=== PATIENT | male | born 1940 | race Caucasian/White ===

== ENCOUNTER → 2016-02-22 | Outpatient (CLI) | payer MEDICARE ==
[~2016-02-22] MED LIST: AMLO10TA PO; ASCO100083 PO; ASP81TEC PO; ATEN100T88 PO; BISO10TA PO; CHOL10003 PO; HYDR-3730 PO; MULT-974 PO; OMEG-12 PO; POTA99TA18 PO; VITA-198 PO
--- NOTE | 2016-02-22 14:33 | Diagnostic Imaging Report ---
PROCEDURE: CT abdomen without contrast. TECHNIQUE: Multiple contiguous axial images were obtained through the abdomen without the use of intravenous contrast. INDICATION: Abdominal pain to the left of the umbilicus for approximately two months. CORRELATION STUDY: None. FINDINGS: Visualized lung bases are clear. Small hiatal hernia with minimal wall thickening of the low esophagus. The unenhanced liver, spleen, and adrenal glands are unremarkable. There are rather prominent fatty atrophic changes about the pancreas. Gallbladder is absent with clips in the fossa. No bile duct dilatation. Right kidney and collecting system are unremarkable. There is rounded low-density mass anteriorly of the left kidney measuring approximately 5 x 3.5 cm, most compatible with a cyst with Hounsfield unit of around 3. Left kidney and collecting system are otherwise unremarkable. Partially visualized gastrointestinal tract is unremarkable apart from a few colonic diverticula. Minimal wall calcification of the abdominal aorta, nonaneurysmal. A few mildly prominent non pathologically enlarged mesenteric lymph nodes. There is very small fat-containing retro-umbilical hernia. No bowel involvement. The remainder of the abdominal wall is unremarkable. In particular, the left periumbilical region is unremarkable. Osseous structures demonstrate no acute abnormality. There is somewhat bulky irregularity about the left costovertebral margins which are fused. IMPRESSION: 1. Small fat-containing retro-umbilical hernia. Abdominal wall is otherwise unremarkable. No etiology for the patient's symptoms. Dictated by: Dictated on workstation # [id number]
== END ==
LOC: RAD 13:25
PROVIDERS: ATTEND Internal Medicine
DX: R10.33 Periumbilical pain (principal); K42.9 Umbilical hernia without obstruction or gangrene
CPT/HCPCS: 74150

== ENCOUNTER 2016-05-28 14:15 | Outpatient (CLI) | payer MEDICARE ==
[~2016-05-28] VITALS: Ht 172.7 cm; Wt 96.3 kg
[~2016-05-28 14:15] MED LIST changes: -BISO10TA PO; -HYDR-3730 PO
[2016-05-28] MEDS ORDERED: BISO10TA PO (14:27)
[2016-05-28 14:29] VITALS: BP 159/96
[2016-05-28 14:51] LABS: BASOPHILS % (AUTO) 0 % (0-10); EOSINOPHILS # (AUTO) 0.2 10^3/uL (0.0-0.3); EOSINOPHILS % (AUTO) 2 % (0-10); LYMPHOCYTES # (AUTO) 2.7 X 10^3 (1.0-4.0); LYMPHOCYTES % (AUTO) 37 % (12-44); MEAN CORPUSCULAR HEMOGLOBIN 31 PG (25-34); MEAN CORPUSCULAR HGB CONC 35 G/DL (32-36); MEAN CORPUSCULAR VOLUME 91 FL (80-99); MONOCYTES # (AUTO) 0.8 X 10^3 (0.0-1.0); MONOCYTES % (AUTO) 11 % (0-12); NEUTROPHILS # (AUTO) 3.5 X 10^3 (1.8-7.8); NEUTROPHILS % (AUTO) 49 % (42-75); PLATELET COUNT 207 10^3/uL (130-400); RED BLOOD COUNT 4.58 10^6/uL (4.35-5.85); RED CELL DISTRIBUTION WIDTH 13.5 % (10.0-14.5); WHITE BLOOD COUNT 7.1 10^3/uL (4.3-11.0)
== END 2016-05-28 16:00 | disposition home or self-care (01) ==
LOC: PREOP 14:15
PROVIDERS: ATTEND Surgery Pediatric Surgery
DX: Z01.812 Encounter for preprocedural laboratory examination (principal); Z11.2 Encounter for screening for other bacterial diseases; K43.2 Incisional hernia without obstruction or gangrene
CPT/HCPCS: 36415; 85025; 87081

== ENCOUNTER 2016-05-31 07:30 | Day surgery (SDC) | payer MEDICARE ==
[~2016-05-31] VITALS: Ht 172.7 cm; Wt 96.3 kg
[~2016-05-31 07:30] MED LIST changes: +BISO10TA PO
[2016-05-31] MEDS ORDERED: NS (IVPB) 50 ML ONE (07:38)
[2016-05-31] MEDS ORDERED: ceFAZolin 1,000 MG (ANCEF) VIAL ONE (07:38)
[2016-05-31] MEDS ORDERED: CATHETER FLUSH 10 ML SYR IV PRN (07:45)
[2016-05-31] MEDS ORDERED: ceFAZolin 1 GM/NS 50 ML IVPB IV ONE ×2 (07:45)
[2016-05-31 07:47] VITALS: BP 181/98
[2016-05-31] MEDS ORDERED: LACTATED RINGERS 1,000 ML IV PRN (08:00)
[2016-05-31] MEDS ORDERED: FAMOTIDINE 20MG/2ML IV (PEPCID) IV ONE (08:00)
--- NOTE | 2016-05-31 08:02 | Progress Note-Pre Operative ---
Pre-Operative Progress Note H&P Reviewed The H&P was reviewed, patient examined and no changes noted. Date H&P Reviewed: May 31, 2016 Time H&P Reviewed: 08:00 Pre-Operative Diagnosis: Symptomatic Ventral abdominal incision hernia TIMI ARSHAD CAMPGROUND CARETAKER May 31, 2016 8:02 am
[2016-05-31] MEDS ORDERED: BUP/EPI 0.5% 1:200,000 (SENSORCAINE) 30 ML VIAL ONE (08:40)
[2016-05-31] MEDS ORDERED: ACETAMINOPHEN 325 MG TABLET/CAPLET (TYLENOL) PO PRN (09:15)
[2016-05-31] MEDS ORDERED: ONDANSETRON 4 MG/2 ML (SDV) Z0FRAN IVP PRN ×2 (09:15→10:45)
[2016-05-31] MEDS ORDERED: morphine INJ 10 MG/ML 1ML (SYR OR VIAL) IVP PRN ×2 (09:15→10:45)
[2016-05-31] MEDS ORDERED: HYDROcodone/APAP 5 MG/325 MG (LORTAB) TAB PO ONE (09:15)
[2016-05-31] MEDS ORDERED: LACTATED RINGERS 1,000 ML IV ONE (09:29)
[2016-05-31] MEDS ORDERED: ROCURONIUM 50 MG/5 ML (ZEMURON) VIAL IV ONE (09:29)
[2016-05-31] MEDS ORDERED: fentaNYL INJECTION 100 MCG/2 ML AMP ONE (09:29)
[2016-05-31] MEDS ORDERED: SEVOFLURANE (ULTANE) 15 ML INHAL SOLN ONE ×2 (09:29→10:25)
[2016-05-31] MEDS ORDERED: proPOfol 200 MG/20 ML (DIPRIVAN) VIAL IV ONE (09:29)
[2016-05-31] MEDS ORDERED: MIDAZOLAM 2 MG/2 ML (VERSED) VIAL ONE (09:29)
[2016-05-31] MEDS ORDERED: LIDOCAINE PF 2% 10 ML (XYLOCAINE) AMP ONE (09:29)
--- NOTE | 2016-05-31 10:23 | Progress Note-Post Operative ---
Post-Operative Progess Note Surgeon (s)/Carton Machine Operator (s) Surgeon ONEYDA FRYE MD Carton Machine Operator: scott self PLASTIC SURGERY ASSISTANT Pre-Operative Diagnosis Symptomatic Ventral abdominal incision hernia Post-Operative Diagnosis same, defect 2x2cm Post-Op Procedure Note Date of Procedure: May 31, 2016 Name of Procedure Performed: ventral abdominal incisional hernia repair with mesh. Description of the Procedure: ventral abdominal incisional hernia repair with mesh. Findings of the Procedure . Anesthesia Type general LMA Estimated blood loss (mL): minimal Specimen(s) collected/removed none ONEYDA FRYE MD May 31, 2016 10:23 am
[2016-05-31] MEDS ORDERED: HYDR-3730 PO (10:24)
--- NOTE | 2016-05-31 10:25 | Discharge Inst-Surgical ---
D/C Lap Instructions-UDAY New, Converted, or Re-Newed RX: RX on Chart Follow Up Appt in 2 weeks Activity as tolerated No driving for 24 hours No driving while on pain medications Incentive Spirometry use every 2 hours while awake Regular Diet Symptoms to Report: Fever over 101 degree F, Nausea/Vomiting Infection Signs and Symptoms to report: Increased redness, Foul odor of wound, Increased drainage Bathing instructions: May shower Operative Area Clean/Dry; Keep incision clean/dry If any problems/questions: Contact your physician or go to Emergency Room ONEYDA FRYE MD May 31, 2016 10:25 am
[2016-05-31] MEDS ORDERED: morphine INJ 10 MG/ML 1ML (SYR OR VIAL) ONE (10:33)
[2016-05-31] MEDS ORDERED: KETOROLAC 30 MG/ML VIAL ONE (10:42)
[2016-05-31] MEDS ORDERED: fentaNYL INJECTION 100 MCG/2 ML AMP IVP PRN (10:45)
[2016-05-31] MEDS ORDERED: MEPERIDINE (DEMEROL) INJ 50 MG/ML IVP PRN (10:45)
[2016-05-31] MEDS ORDERED: KETOROLAC 30 MG/ML VIAL IVP ONE (10:45)
[2016-05-31 11:25] VITALS: BP 162/86
[2016-05-31 11:55] VITALS: BP 158/85
[2016-05-31 12:25] VITALS: BP 172/95
[2016-05-31 12:30] VITALS: BP 172/95
--- NOTE | 2016-06-01 08:34 | OPERATIVE REPORT ---
PROCEDURE PHYSICIAN: ONEYDA SWIFT DATE OF PROCEDURE: 05/31/2016 ATTENDING PRIMARY CARE PHYSICIAN: Dr. Judd. PREOPERATIVE DIAGNOSIS: Symptomatic periumbilical incisional hernia POSTOPERATIVE DIAGNOSIS: Symptomatic periumbilical incisional hernia with defect approximately 2 x 2 centimeters in size. PROCEDURE: Open ventral abdominal incisional hernia repair with mesh. SURGEON: Dr. Swift. BANKING MANAGER: Rodriguez Evans APRN. ANESTHESIA: General laryngeal mask airway. ESTIMATED BLOOD LOSS: Minimal. FINDINGS: Small ventral abdominal incisional hernia at the level of the umbilicus approximately 2 cm in size from a previous trocar site. DISPOSITION: The patient tolerated the procedure well. Mr. Chris Marsh is a 76-year-old male who has had complaints of periumbilical pain for the past 6 months. He reports that he noticed a bulge in the area which has gone larger in size and become more painful. CT scan was performed, which showed a small fat containing periumbilical hernia where a previous trocar site was place. Upon further examination, he was found to have reducible ventral abdominal incisional hernia which was tender to palpation. PROCEDURE: The patient was brought to the operating room, laid supine on the table. After adequate IV pain and sedative medications and general laryngeal mask airway intubation, the abdomen was prepped and draped in standard surgical fashion. 0.5% Marcaine with epinephrine was then used to anesthetize the overlying skin in the supraumbilical region. A crescent shaped skin incision was then made using a 15 blade. The subcutaneous tissue was then dissected down using electrocautery. The fascial defect was identified and the hernia sac dissected out using blunt dissection as well as electrocautery. The hernia sac was approximately 2 cm in size. This was then opened and the hernia sac excised using electrocautery under direct visualization. An area around the fascia was then cleared off using electrocautery with visualization of good hemostasis. A Ventralex coated polypropylene mesh 6.4 cm in diameter was then placed into the defect. The mesh was then sutured to the fascia in a concentric manner using interrupted 3-0 Prolene sutures. Good hemostasis was observed. The subcutaneous tissue was then reapproximated using 3-0 Vicryl interrupted sutures. The skin was closed using 4-0 Monocryl running subcuticular suture. The wound was then cleaned and covered Dermabond. The umbilicus was then stuffed with tonsil sponges followed by 4 x 4 gauze, followed by a large OpSite. The patient tolerated the procedure well. We will start IV and oral pain medication as well as a clear liquid diet. Once he is tolerating clears, has good pain control with oral pain medications and ambulating well, we will discharge him home. He will be instructed to do no heavy lifting or exertion for the next 6 weeks. Job ID: [id number] Dictated Date: 05/31/2016 10:18:37 Acid Extractor Date: 06/01/2016 08:24:00 / trever
== END 2016-05-31 12:30 | disposition home or self-care (01) ==
LOC: SDC 07:30
PROVIDERS: ATTEND Surgery Pediatric Surgery
DX: K43.2 Incisional hernia without obstruction or gangrene (principal)

== ENCOUNTER 2018-09-19 19:20 | Emergency (ER) | payer MEDICARE ==
[~2018-09-19] VITALS: Ht 172.7 cm; Wt 90.7 kg
[~2018-09-19 19:20] MED LIST changes: +HYDR-3730 PO
[2018-09-19] MEDS ORDERED: NS IV 1000 ML 1,000 ML IV SCH (19:39)
[2018-09-19 19:41] LABS: BILIRUBIN,URINE NEGATIVE (NEGATIVE); CLARITY,URINE CLEAR; COLOR,URINE YELLOW; GLUCOSE, URINE (UA) NEGATIVE (NEGATIVE); KETONES,URINE NEGATIVE (NEGATIVE); LEUKOCYTE ESTERASE ,URINE 3+ (NEGATIVE); NITRITE,URINE POSITIVE (NEGATIVE); PH,URINE 5 (5-9); PROTEIN,URINE 3+ (NEGATIVE); UROBILINOGEN,URINE 4 MG/DL (NORMAL)
[2018-09-19 19:55] LABS: BACTERIA,URINE MODERATE /HPF; WBC,URINE TNTC /HPF
[2018-09-19] MEDS ORDERED: ACETAMINOPHEN 500 MG TAB (TYLENOL) PO ONE (20:00)
[2018-09-19 20:13] LABS: BASOPHILS % (AUTO) 0 % (0-10); EOSINOPHILS # (AUTO) 0.1 10^3/uL (0.0-0.3); EOSINOPHILS % (AUTO) 1 % (0-10); HEMATOCRIT 42 % (40-54); HEMOGLOBIN 14.4 G/DL (13.3-17.7); LYMPHOCYTES # (AUTO) 2.6 X 10^3 (1.0-4.0); LYMPHOCYTES % (AUTO) 23 % (12-44); MEAN CORPUSCULAR HEMOGLOBIN 31 PG (25-34); MEAN CORPUSCULAR HGB CONC 35 G/DL (32-36); MEAN CORPUSCULAR VOLUME 90 FL (80-99); MEAN PLATELET VOLUME 10.5 FL (7.4-10.4); MONOCYTES # (AUTO) 1.4 X 10^3 (0.0-1.0); MONOCYTES % (AUTO) 13 % (0-12); NEUTROPHILS # (AUTO) 7.2 X 10^3 (1.8-7.8); NEUTROPHILS % (AUTO) 63 % (42-75); PLATELET COUNT 166 10^3/uL (130-400); RED CELL DISTRIBUTION WIDTH 13.7 % (10.0-14.5); WHITE BLOOD COUNT 11.3 10^3/uL (4.3-11.0)
--- NOTE | 2018-09-19 20:14 | ED GU-Male ---
General Chief Complaint: - Urinary Stated Complaint: BURNING PAIN WHILE URINATING Nursing Triage Note: thinks he may possibly have a UTI, has burning during urination along with fruency History of Present Illness Date Seen by Provider: Sep 19, 2018 Time Seen by Provider: 19:30 Initial Comments 78-year-old male reports a 2 day history of polyuria and dysuria. He also had diarrhea for approximately 12 hours that began on Saturday night. He has been trying to increase his water intake and drinking cranberry juice. He is not prone to UTIs and has not had kidney stones in the past. He took ibuprofen yesterday but nothing for pain or fever today. Timing/Duration: other (2 days) Severity/Quality: moderate Location: urethral Radiation: none Activities at Onset: none Prior Genitourinary Problems: none Associated Symptoms: denies symptoms, other (diarrhea) Allergies and Home Medications Allergies Coded Allergies: No Known Drug Allergies (Unverified , 05/28/16) Home Medications Amlodipine Besylate 10 Mg Tablet, 10 MG PO DAILY, (Reported) Ascorbic Acid 1,000 Mg Tab.chew, 1,000 MG PO DAILY, (Reported) Aspirin 81 Mg Tabec, 81 MG PO DAILY, (Reported) Bisoprolol Fumarate 10 Mg Tablet, 10 MG PO DAILY, (Reported) Cholecalciferol 1,000 Unit Tablet, 1,000 UNIT PO DAILY, (Reported) Ciprofloxacin HCl 500 Mg Tablet, 500 MG PO BID Prescribed by: STEVEN MELGOZA on 09/19/182023 Hydrocodone/Acetaminophen 1 Each Tablet, 1-2 EACH PO Q4H Prescribed by: ONEYDA FRYE on 05/31/16 1024 Multivitamin 1 Each Tablet, 1 EACH PO DAILY, (Reported) [place]-3/Dha/Epa/Fish Oil 1 Each Capsule.dr, 1 EACH PO DAILY, (Reported) Phenazopyridine HCl 100 Mg Tablet, 100 MG PO Q8H Prescribed by: STEVEN MELGOZA on 09/19/182023 Potassium Gluconate 99 Mg Tablet.er, 99 MG PO DAILY, (Reported) Vitamin E (Dl,Tocopheryl Acet) 1,000 Unit Capsule, 1,000 UNIT PO DAILY, (Reported) Patient Home Medication List Home Medication List Reviewed: Yes Review of Systems Review of Systems Constitutional: no symptoms reported, see HPI Genitourinary: see HPI, burning, dysuria, frequency; denies flank pain, denies hematuria; pain, urgency All Other Systemes Reviewed Negative Unless Noted: Yes Past Acrfrdw-Jlcbvm-Dlhmcg Hx Past Med/Social Hx: Reviewed Nursing Past Med/Soc Hx Patient Social History Alcohol Use: Denies Use Recreational Drug Use: No Smoking Status: Former Smoker Type Used: Cigarettes Former Smoker, Quit: May 29, 1991 Recent Foreign Travel: No Contact w/Someone Who Travel: No Recent Infectious Disease Expo: No Recent Hopitalizations: No Physical Abuse: No Sexual Abuse: No Mistreated: No Fear: No Immunizations Up To Date Date of Pneumonia Vaccine: Oct 31, 2015 Date of Influenza Vaccine: Oct 31, 2015 Seasonal Allergies Seasonal Allergies: No Past Medical History Surgeries: Yes (KNEE SCOPE-LEFT) Gallbladder Respiratory: No Cardiac: Yes Hypertension Neurological: No Reproductive Disorders: No Sexually Transmitted Disease: No HIV/AIDS: No Genitourinary: No Gastrointestinal: Yes Gastroesophageal Reflux Musculoskeletal: No Endocrine: No HEENT: No Loss of Vision: Bilateral Hearing Impairment: Denies Cancer: No Psychosocial: No Integumentary: No Blood Disorders: No Adverse Reaction/Blood Tranf: No (N/A) Physical Exam Vital Signs Vital Signs - First Documented 09/19/18 09/19/18 19:24 20:50 Temp 101.1 Pulse 89 Resp 18 B/P (MAP) 169/86 (113) Pulse Ox 99 O2 Delivery Room Air Capillary Refill : Less Than 3 Seconds Height, Weight, BMI Height: 5'8.00" Weight: 200lbs. 4.0oz. 90.593990wk; 32.3 BMI Method:Stated General Appearance: WD/WN, no apparent distress Neck: non-tender, full range of motion, supple, normal inspection Cardiovascular: normal peripheral pulses, regular rate, rhythm, no edema Respiratory: chest non-tender, lungs clear, normal breath sounds Gastrointestinal: normal bowel sounds, non tender, soft; No distended, No guarding, No rebound, No tenderness Back: normal inspection, no CVA tenderness; No CVA tenderness (R), No CVA tenderness (L) Extremities: normal range of motion, non-tender, normal inspection Neurologic/Psychiatric: no motor/sensory deficits, alert, normal mood/affect, oriented x 3 Skin: normal color, warm/dry Progress/Results/Core Measures Suspected Sepsis Recent Fever Within 48 Hours: Yes Infection Criteria Present: Suspected New Infection New/Unexplained Altered Menta: No Sepsis Screen: No Definite Risk SIRS Temperature:101.1 Pulse: 89 Respiratory Rate: 18 Laboratory Tests 09/19/18 20:03: White Blood Count 11.3H Blood Pressure 169 /86 Mean: 113 Laboratory Tests 09/19/18 20:03: Creatinine 1.15, Platelet Count 166, Total Bilirubin 0.5 Results/Orders Lab Results Laboratory Tests Test 09/19/18 19:29 09/19/18 20:03 Range/Units Urine Color YELLOW Urine Clarity CLEAR Urine pH 5 5-9 Urine Specific [place] 1.015 L 1.016-1.022 Urine Protein 3+ H NEGATIVE Urine Glucose (UA) NEGATIVE NEGATIVE Urine Ketones NEGATIVE NEGATIVE Urine Nitrite POSITIVE H NEGATIVE Urine Bilirubin NEGATIVE NEGATIVE Urine Urobilinogen 4 H NORMAL MG/DL Urine Leukocyte Esterase 3+ H NEGATIVE Urine RBC (Auto) 3+ H NEGATIVE Urine RBC 10-25 H /HPF Urine WBC TNTC H /HPF Urine Squamous Epithelial Cells NONE /HPF Urine Crystals NONE /LPF Urine Bacteria MODERATE H /HPF Urine Casts NONE /LPF Urine Mucus NEGATIVE /LPF Urine Culture Indicated YES White Blood Count 11.3 H 4.3-11.0 10^3/uL Red Blood Count 4.61 4.35-5.85 10^6/uL Hemoglobin 14.4 13.3-17.7 G/DL Hematocrit 42 40-54 % Mean Corpuscular Volume 90 80-99 FL Mean Corpuscular Hemoglobin 31 25-34 PG Mean Corpuscular Hemoglobin Concent 35 32-36 G/DL Red Cell Distribution Width 13.7 10.0-14.5 % Platelet Count 166 130-400 10^3/uL Mean Platelet Volume 10.5 H 7.4-10.4 FL Neutrophils (%) (Auto) 63 42-75 % Lymphocytes (%) (Auto) 23 12-44 % Monocytes (%) (Auto) 13 H 0-12 % Eosinophils (%) (Auto) 1 0-10 % Basophils (%) (Auto) 0 0-10 % Neutrophils # (Auto) 7.2 1.8-7.8 X 10^3 Lymphocytes # (Auto) 2.6 1.0-4.0 X 10^3 Monocytes # (Auto) 1.4 H 0.0-1.0 X 10^3 Eosinophils # (Auto) 0.1 0.0-0.3 10^3/uL Basophils # (Auto) 0.0 0.0-0.1 10^3/uL Sodium Level 141 135-145 MMOL/L Potassium Level 3.7 3.6-5.0 MMOL/L Chloride Level 106 98-107 MMOL/L Carbon Dioxide Level 23 21-32 MMOL/L Anion Gap 12 5-14 MMOL/L Blood Urea Nitrogen 12 7-18 MG/DL Creatinine 1.15 0.60-1.30 MG/DL Estimat Glomerular Filtration Rate > 60 BUN/Creatinine Ratio 10 Glucose Level 96 70-105 MG/DL Calcium Level 9.3 8.5-10.1 MG/DL Corrected Calcium 9.5 8.5-10.1 MG/DL Total Bilirubin 0.5 0.1-1.0 MG/DL Aspartate Amino Transf (AST/SGOT) 21 5-34 U/L Alanine Aminotransferase (ALT/SGPT) 18 0-55 U/L Alkaline Phosphatase 76 40-136 U/L Total Protein 6.7 6.4-8.2 GM/DL Albumin 3.8 3.2-4.5 GM/DL My Orders Orders - STEVEN MELGOZA Ua Culture If Indicated (09/19/18 19:26) Cbc With Automated Diff (09/19/18 19:39) Comprehensive Metabolic Panel (09/19/18 19:39) Ed Iv/Invasive Line Start (09/19/18 19:39) Ns Iv 1000 Ml (Sodium Chloride 0.9%) (09/19/18 19:39) Acetaminophen Tablet (Tylenol Tablet) (09/19/18 20:00) Urine Culture (09/19/18 19:29) Ciprofloxacin Tablet (Cipro Tablet) (09/19/18 20:15) Phenazopyridine Tablet (Pyridium Tablet) (09/19/18 20:30) Medications Given in ED Current Medications Medications Dose Ordered Sig/Ok Route Start Time Stop Time Status Last Admin Dose Admin Acetaminophen 1,000 mg ONCE ONCE PO 09/19/18 20:00 09/19/18 20:01 DC 09/19/18 20:02 1,000 MG Phenazopyridine HCl 100 mg ONCE ONCE PO 09/19/18 20:30 09/19/18 20:31 DC 09/19/18 20:26 100 MG Vital Signs/I&O 09/19/18 09/19/18 19:24 20:50 Temp 101.1 98.0 Pulse 89 89 Resp 18 18 B/P (MAP) 169/86 (113) 169/86 (113) Pulse Ox 99 O2 Delivery Room Air Capillary Refill : Less Than 3 Seconds Blood Pressure Mean: 113 Progress Note : Time: 19:30 Progress Note 78-year-old male seen and evaluated. Will obtain UA, CBC and CMP, we'll give 1 L of normal saline per IV. Tylenol 1000 mg po. 1999 UTI per UA, awaiting CBC and CMP. Will give Cipro and Pyridium. 2019 CBC and CMP essentially normal. Temp 98.9. Discharge instructions and return precautions reviewed with the patient. All questions answered. Departure Impression Primary Impression: Urinary tract infection Qualified Codes: N30.01 - Acute cystitis with hematuria Disposition: HOME, SELF-CARE Condition: Improved Departure-Patient Inst. Decision time for Depature: 20:20 Referrals: NOELLE JUDD MD (PCP/Family) Primary Care Physician Patient Instructions: Urinary Tract Infection, Adult (DC) Add. Discharge Instructions: Increase water intake, 16 ounces every 2 hours while awake. Empty bladder frequently, every 2 hours while awake. Continue to drink 1 cup of cranberry juice or eat 1 cup of fresh blueberries daily. Take the Cipro antibiotic as directed. Use the Pyridium every 8 hours for bladder spasms or pain urinating. You may alternate between ibuprofen 600 mg and Tylenol 650 mg every 4 hours for pain. Follow-up with Dr. Judd on Saturday or Saturday if symptoms are not improving or worsen. Return to emergency department for fever greater than 101 not relieved by Tylenol or ibuprofen, vomiting and diarrhea, or new concerns. All discharge instructions reviewed with patient and/or family. Voiced understanding. Scripts Phenazopyridine HCl (Pyridium) 100 Mg Tablet 100 MG PO Q8H, #6 TAB 0 Refills Prov: STEVEN MELGOZA 09/19/18 Ciprofloxacin HCl (Ciprofloxacin HCl) 500 Mg Tablet 500 MG PO BID, #14 TAB 0 Refills Prov: STEVEN MELGOZA 09/19/18 Copy Copies To 1: NOELLE JUDD MD, AMY ARNP Sep 19, 2018 20:14
[2018-09-19] MEDS ORDERED: CIPROFLOXACIN 500 MG (CIPRO) TABLET PO STA (20:15)
[2018-09-19] MEDS ORDERED: PHEN-639 PO (20:24)
[2018-09-19] MEDS ORDERED: CIPR500T4 PO (20:24)
[2018-09-19 20:29] LABS: ALANINE AMINOTRANSFERASE 18 U/L (0-55); ALBUMIN 3.8 GM/DL (3.2-4.5); ALKALINE PHOSPHATASE 76 U/L (40-136); BILIRUBIN,TOTAL 0.5 MG/DL (0.1-1.0); BUN/CREATININE RATIO 10; CALCIUM 9.3 MG/DL (8.5-10.1); CARBON DIOXIDE 23 MMOL/L (21-32); CHLORIDE 106 MMOL/L (98-107); CREATININE SERUM 1.15 MG/DL (0.60-1.30); GFR ESTIMATED > 60; GLUCOSE 96 MG/DL (70-105); POTASSIUM 3.7 MMOL/L (3.6-5.0); SODIUM 141 MMOL/L (135-145); TOTAL PROTEIN 6.7 GM/DL (6.4-8.2)
[2018-09-19] MEDS ORDERED: PHENAZOPYRIDINE 100 MG (PYRIDIUM) TABLET PO ONE (20:30)
[2018-09-19 20:50] VITALS: BP 169/86
== END 2018-09-19 20:38 | disposition home or self-care (01) ==
LOC: EDUNIT# 19:20 → ER 19:21
DX: N39.0 Urinary tract infection, site not specified (principal); I10 Essential (primary) hypertension; K21.9 Gastro-esophageal reflux disease without esophagitis; Z79.82 Long term (current) use of aspirin; Z87.891 Personal history of nicotine dependence
CPT/HCPCS: 36415; 80053; 81000; 85025; 87077; 87088; 87186; 96360

== ENCOUNTER → 2021-01-04 | Outpatient (CLI) | payer MEDICARE ==
[~2021-01-04] MED LIST changes: -BISO10TA PO; +BISO10TA6 PO; +CIPR500T5 PO; +PHEN-639 PO
[2021-01-04 16:15] LABS: ABSOLUTE RETIC # 72 10e9/uL (24-90); BASOPHILS # (AUTO) 0.1 10^3/uL (0.0-0.1); BASOPHILS % (AUTO) 1 % (0-10); EOSINOPHILS # (AUTO) 0.2 10^3/uL (0.0-0.3); EOSINOPHILS % (AUTO) 2 % (0-10); HEMATOCRIT 41 % (40-54); LYMPHOCYTES # (AUTO) 4.7 10^3/uL (1.0-4.0); LYMPHOCYTES % (AUTO) 50 % (12-44); MEAN CORPUSCULAR HEMOGLOBIN 32 pg (25-34); MEAN CORPUSCULAR HGB CONC 34 g/dL (32-36); MEAN CORPUSCULAR VOLUME 94 fL (80-99); MEAN PLATELET VOLUME 9.7 fL (9.0-12.2); MONOCYTES # (AUTO) 0.6 10^3/uL (0.0-1.0); MONOCYTES % (AUTO) 6 % (0-12); NEUTROPHILS # (AUTO) 3.8 10^3/uL (1.8-7.8); NEUTROPHILS % (AUTO) 41 % (42-75); PLATELET COUNT 216 10^3/uL (130-400); RETICULOCYTE % 1.65 % (0.50-2.40); WHITE BLOOD COUNT 9.4 10^3/uL (4.3-11.0)
[2021-01-04 16:28] LABS: LYMPHOCYTES % (MANUAL) 47 %; NEUTROPHILS % (MANUAL) 40 %
[2021-01-04 16:29] LABS: BASOPHILS % (MANUAL) 0 %; EOSINOPHILS % (MANUAL) 0 %; MONOCYTES % (MANUAL) 10 %; RBC MORPH NORMAL; REACTIVE LYMPHOCYTES 3 %
== END ==
LOC: LAB 15:39
PROVIDERS: ATTEND Internal Medicine
DX: D64.9 Anemia, unspecified (principal); D72.820 Lymphocytosis (symptomatic)
CPT/HCPCS: 36415; 85007; 85027; 85045; 85055

== ENCOUNTER → 2021-10-04 | Outpatient (CLI) | payer MEDICARE ==
--- NOTE | 2021-10-04 16:00 | Diagnostic Imaging Report ---
CLINICAL INDICATION: Patient picked up an AC unit and, when he put it down, his hips starting hurting. Pain has been for the past couple of weeks. EXAM: X-ray right hip, AP and crosstable lateral views. COMPARISON: None. FINDINGS: There is no acute fracture or dislocation. There is enthesopathy of the right greater trochanter region, right iliac crest, and ischium region. The remainder of the right hip and pelvis regions is unremarkable. 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 Dictated by: Dictated on workstation # [id number]
== END ==
LOC: RAD 14:17
PROVIDERS: ATTEND Nurse Practitioner Family
DX: M16.11 Unilateral primary osteoarthritis, right hip (principal)
CPT/HCPCS: 73502

== ENCOUNTER → 2021-11-01 | Outpatient (CLI) | payer MEDICARE ==
[~2021-11-01] MED LIST changes: +CATHETER FLUSH 10 ML SYR IV PRN; +HOLD METFORMIN - RECEIVED CONTRAST 20 ML VIAL IV SCH; +IOHEXOL 350 MG/ML 100 ML (OMNIPAQUE 350) VIAL IV ONE; +NS 100 ML (IVPB) BAG IV ONE
[2021-11-01 09:23] LABS: CREATININE SERUM 1.14 MG/DL (0.60-1.30)
--- NOTE | 2021-11-01 10:12 | Diagnostic Imaging Report ---
EXAMINATION: CT abdomen and pelvis with intravenous contrast. TECHNIQUE: Multiple contiguous axial images were obtained through the abdomen and pelvis after the uneventful administration of intravenous contrast. All CT scans use one or more of the following dose optimizing techniques: automated exposure control, MA and/or KvP adjustment based on patient size and exam type or iterative reconstruction. HISTORY: Abdominal pain. Lifting injury. COMPARISON: 02/22/2016. FINDINGS: The heart is unremarkable. The included lung bases are clear. There is fatty atrophy of the pancreas. No focal pancreatic lesion is seen. Prominent simple cortical cyst is seen in the left kidney measuring 7.1 x 5.7 cm. No solid renal mass. No hydronephrosis or obstructing calculi. The urinary bladder is nondistended. The prostate is enlarged measuring 5.2 cm in transverse diameter. The liver, spleen, and adrenal glands have a normal appearance. The gallbladder is surgically absent. There is no pathologically enlarged mesenteric or retroperitoneal adenopathy. A small hiatal hernia is present. The bowel loops are nondilated. Diverticuli are seen in the descending and sigmoid colon. The appendix is visualized in the right lower quadrant and has a normal appearance. There is no free fluid or free air. No acute osseous abnormalities. There is calcified aortic and iliac atherosclerotic plaque without aneurysm. Fat-containing left inguinal hernia is seen. There is no free air, loculated collection, or adenopathy in the pelvis. IMPRESSION: 1. No acute abnormalities in the abdomen and pelvis. No bowel junction, free fluid, or free air. 2. Diverticuli in the descending and sigmoid colon without evidence of acute diverticulitis. 3. Small hiatal hernia. 4. Small fat-containing left inguinal hernia. No associated inflammation or entrapped loops of bowel. Dictated by: Dictated on workstation # [id number]
== END ==
LOC: RAD 08:56
PROVIDERS: ATTEND Internal Medicine
DX: K57.90 Diverticulosis of intestine, part unspecified, without perforation or abscess without bleeding (principal); K44.9 Diaphragmatic hernia without obstruction or gangrene; K40.90 Unilateral inguinal hernia, without obstruction or gangrene, not specified as recurrent
CPT/HCPCS: 36415; 74177; 82565; 84520